=== PATIENT | male | born 1965 | race Caucasian/White ===

== ENCOUNTER → 2017-03-15 | Outpatient (CLI) | payer OTHER | LOC: OD 11:09 | PROVIDERS: ATTEND Otolaryngology | DX: J30.9 Allergic rhinitis, unspecified (principal) | CPT/HCPCS: 36415; 82785 ==

== ENCOUNTER 2018-07-01 06:33 | Day surgery (SDC) | payer OTHER ==
--- NOTE | 2018-06-28 13:09 | EKG REPORT ---
SEVERITY:- ABNORMAL ECG - SINUS RHYTHM FIRST DEGREE AV BLOCK PROBABLE LEFT ATRIAL ABNORMALITY INFERIOR INFARCT, AGE INDETERMINATE : Confirmed by: Venancio Ospina MD 28-Jun-2018 13:09:24
[~2018-07-01 06:33] MED LIST: LACTATED RINGERS 1000 ML IV PRN; LIDOCAINE 0.5% INJ-PF (5 MG/ML) 50 ML SDV SUBCUT PRN
[2018-07-01] MEDS ORDERED: BUPIVACAINE HCL 0.5%-EPI 1:200000 INJ/PF 30 ML VIAL ONE (07:14)
[2018-07-01] MEDS ORDERED: BUPIVACAINE HCL 0.5%/EPI 1:200000 INJ 1.8 ML CARTRIDGE ONE ×2 (07:15→08:08)
[2018-07-01] MEDS ORDERED: OXYMETAZOLINE HCL 0.05% NASAL SPRAY 15 ML BOTTLE ONE ×2 (07:15→07:17)
[2018-07-01] MEDS ORDERED: BACITRACIN ZINC OINTMENT 15 GM ONE (07:16)
[2018-07-01] MEDS ORDERED: DEXAMETHASONE SOD PHOS INJ 10 MG/1 ML VIAL ONE (07:22)
[2018-07-01] MEDS ORDERED: DEXAMETHASONE SOD PHOSPHATE INJ 4 MG/1 ML VIAL ONE (07:22)
[2018-07-01] MEDS ORDERED: LIDOCAINE 2% INJ-PF (20 MG/ML) 10 ML AMPUL ONE (07:22)
[2018-07-01] MEDS ORDERED: ONDANSETRON HCL INJ/PF 4 MG/2 ML SDV ONE (07:22)
[2018-07-01] MEDS ORDERED: FENTANYL CITRATE INJ/PF 250 MCG/5 ML AMPULE ONE (07:22)
[2018-07-01] MEDS ORDERED: PROPOFOL INJ 200 MG/20 ML VIAL IV ONE (07:23)
[2018-07-01] MEDS ORDERED: ACETAMINOPHEN 1,000 MG/100 ML RTUPB IV ONE (07:23)
[2018-07-01] MEDS ORDERED: SUCCINYLCHOLINE CHLORIDE INJ 200 MG/10 ML VIAL ONE (07:23)
[2018-07-01] MEDS ORDERED: ROCURONIUM BROMIDE INJ 50 MG/5 ML VIAL IV ONE (07:23)
[2018-07-01] MEDS ORDERED: NEOSTIGMINE METHYLSULFATE 10 MG/10 ML VIAL ONE (07:24)
[2018-07-01] MEDS ORDERED: MIDAZOLAM 2 MG/2 ML INJ ONE (07:26)
[2018-07-01] MEDS ORDERED: EPHEDRINE SULFATE INJ 50 MG/1 ML AMPULE ONE (07:30)
[2018-07-01] MEDS ORDERED: PHENYLEPHRINE HCL INJ/PF 10 MG/1 ML SDV ONE (07:31)
[2018-07-01] MEDS ORDERED: CEFAZOLIN 2 GM/D5W RTU 2 GM/50 ML RTUPB IV ONE (07:36)
[2018-07-01] MEDS ORDERED: SCOPOLAMINE HYDROBROMIDE 1.5 MG PATCH.TD72 TD ONE (07:40)
[2018-07-01] MEDS ORDERED: CEFAZOLIN 2 GM/D5W RTU 2 GM/50 ML RTUPB IV PRN (07:43)
[2018-07-01] MEDS ORDERED: MINERAL OIL (STERILE) 10 ML VIAL ONE (10:10)
[2018-07-01] MEDS ORDERED: ALBUTEROL SULFATE 0.083% NEB 2.5 MG/3 ML AMPUL NEB ONE (12:25)
[2018-07-01] MEDS ORDERED: OXYCODONE-ACETAMINOPHEN 5-325 MG TABLET ONE (12:43)
--- NOTE | 2018-07-02 07:55 | [facility]ARE OPERATIVE REPORT E ---
[facility] Operative Report NAME: JUWAN BURRIS AGE: 52Y DATE OF SURGERY: 07/01/2018 ROOM: PREOPERATIVE DIAGNOSES: 1. Acute recurrent sinusitis. 2. Nasal septal deviation acquired. 3. Nasal deformities acquired. 4. Nasal valve collapse. 5. Bilateral chronic eustachian tube dysfunction 6. Bilateral inferior turbinate hypertrophy. 7. Bilateral middle turbinate hypertrophy. POSTOPERATIVE DIAGNOSES: 1. Acute recurrent sinusitis. 2. Nasal septal deviation acquired. 3. Nasal deformities acquired. 4. Nasal valve collapse. 5. Bilateral chronic eustachian tube dysfunction 6. Bilateral inferior turbinate hypertrophy. 7. Bilateral middle turbinate hypertrophy. 8. Chronic nasal dyspnea. OPERATION PERFORMED: 1. Image guided functional endoscopic sinus surgery as follows. 2. Bilateral maxillary enterostomies via bilateral transnasal rigid surgical endoscopy. 3. Bilateral frontal sinus balloon Sinuplasty via bilateral transnasal rigid surgical endoscopy. 4. Bilateral eustachian tube balloon plasty via bilateral transnasal rigid surgical endoscopy. 5. Endonasal/closed functional septorhinoplasty addressing the lower lateral cartilages with cartilage grafting and nasal tip elevation/stabilization. 6. Bilateral middle turbinate reductions. 7. Bilateral inferior turbinate reduction using a submucous resection technique. SURGEON: FLORENTINO DALTON D.O. ANESTHESIA: General endotracheal tube. ANESTHESIA STAFF: Nohelia MIN. ESTIMATED BLOOD LOSS: 100 mL. FLUIDS: 1900 mL for IV fluids. URINE OUTPUT: 600 mL. COMPLICATIONS: None. DRAINS: None. SPONGE COUNT: Verified. NEEDLE COUNT: Verified. SPECIMENS: None. FINDINGS: 1. Left nasal septal deviation involving bone and cartilage and there was a compression of the nasal septal cartilage with longitudinal septal buckling with fracture site. 2. Displacement of the left medial crura and medial crural footplate into the left nasal vestibule. 3. Left maxillary crest spur/septal spur that was large/prominent. 4. There were no sinonasal polyps or discharge noted. 5. Bilateral inferior turbinate hypertrophy. 6. Bilateral middle turbinate hypertrophy. INDICATIONS: This is a 52-year-old white male patient who was seen and evaluated in the [facility] office. The patient had been referred for, and he complained of, a history of acute recurrent sinusitis episodes occurring each year requiring antibiotic treatment. These episodes have gone on for years. The patient also complained of allergy symptoms and chronic eustachian tube dysfunction over the years with chronic ear symptoms of pain, pressure, fullness, and congestion. The patient also complained of worsening nasal dyspnea over the years with the addition of nasal valve collapse also being noted clinically. The patient also underwent CT sinus imaging. After extensive discussion with the patient, recommendation and plan was made to proceed with image guidance functional endoscopic sinus surgery, endonasal/closed septorhinoplasty with cartilage grafting on the left, and reduction of middle and inferior turbinates. The patient voiced an understanding of the described surgical plan and was in agreement. The procedures and all of their risks and complications were all discussed in detail with the patient, which he voiced an understanding of, agreed to proceed with, and consent was obtained. PROCEDURE IN DETAIL: The patient was taken to the main operating room and was placed on the operating room table in the supine position. Appropriate monitors were placed. Using mask and IV access general anesthesia was induced. The patient was transorally intubated without difficulty. The patient was then positioned and prepped for sinus and nasal surgery. The patient underwent a nasal examination with injection of local anesthetic with epinephrine to establish a nasal block. Two afrin-soaked neuro patties were placed through the nasal passage. The patient was then prepped and draped in a sterile fashion for nasal and sinus surgery. The image guidance system was set up and tested appropriately before beginning the case. The patient underwent a hemitransfixion incision with elevation of the mucoperichondrium and mucoperiosteal flaps without difficulty. The bony cartilage in this junction was identified and divided and the most deviated portions of septal cartilage and bone were removed. The maxillary crest spur/septal spur was removed with a V-chisel without difficulty. There was a greater than 1.5 x 1.5 cm cartilaginous stress that was preserved. At this point the turbinate bipolar wand was used to make 2 passes in each inferior turbinate. Next a stair elevator was used to out fracture each inferior turbinate. A turbinate microdebrider system at a setting of 1500 rpm was used to perform submucous resection of each inferior turbinate. At this point the image guidance functional endoscopic sinus surgery portion of the case was addressed in the following manner. There was bilateral transnasal rigid surgical endoscopy used throughout the case. There were sinus surgical instruments as well as frontal sinus and eustachian tube balloons that were used throughout the case. At this point under rigid surgical endoscopy the eustachian tube balloon plasty was addressed with insertion of the balloon into each eustachian tube opening followed by inflation of the balloon to 12 atmospheres on each side with the dilation held in place for 2 minutes on each side. Once complete the eustachian balloon system was withdrawn. Next there was middle turbinate reduction performed on each side. This was followed by mobilization of the uncinate process on each side and completion of the maxillary antrostomies without difficulty. A microdebrider system at a setting of 3000 rpm was used as well. The frontal sinus balloon Sinuplasty system was introduced on each side under direct surgical endoscopic visualization. The balloon was inflated to 12 atmospheres at multiple positions on each side and was then withdrawn. At this point the rhinoplasty portion of the case was addressed in the following manner. There was a left modified marginal incision that was performed followed by creation of a precise pocket for the extended left alar back graft. This graft was fashioned from cartilage that was harvested and was then set in place in the precise pocket. The graft was secured in place using 5-0 Prolene suture and then with Telfa bolsters overlying the internal nasal lining and external nasal skin. Once complete, there was a left alar rim graft fashioned that was set in place into a precise pocket as well. All incisions were reapproximated with 5-0 Chromic suture. The remaining cartilage that had been harvested was placed back between the mucosal flaps to be banked. There was a left mucosal flap rent that occurred during dissection around the prominent/large maxillary crest spur/septal spur. This was reapproximated with 5-0 Chromic suture. Once complete there was a modified Merocel pack placed into each nasal passage and sinus surgical site. These were secured at the caudal aspect with 4-0 Prolene suture. At this point the patient's nose was cleaned and dried and he was then returned to the anesthesia staff. The patient was allowed to emerge from general anesthesia and was then extubated in the main operating room without difficulty. He then transported to the postanesthesia recovery unit in stable condition. There were no complications. DICTATING PHYSICIAN: FLORENTINO DALTON D.O. [id number] PHY#: [id number] ID: [id number] JOB#: [id number] ACCT: [id number] cc:FLORENTINO DALTON D.O. >
== END 2018-07-01 13:40 | disposition home or self-care (01) ==
LOC: SC 06:33
PROVIDERS: ATTEND Otolaryngology
DX: J01.91 Acute recurrent sinusitis, unspecified (principal); J34.2 Deviated nasal septum; J34.3 Hypertrophy of nasal turbinates; M95.0 Acquired deformity of nose; H69.83 Other specified disorders of Eustachian tube, bilateral; J30.2 Other seasonal allergic rhinitis; J34.89 Other specified disorders of nose and nasal sinuses; Z79.899 Other long term (current) drug therapy
CPT/HCPCS: 31256; 31296; 30420; 30140; 69799; 93005; 93010; J2250; J3490 ×8; J1100 ×2; J3010; J2370; J0330; J2405; J2704; J0690; J0131; 160